=== PATIENT | male | born 1975 | race Caucasian/White ===

== ENCOUNTER → 2020-07-19 | Outpatient (CLI) | payer OTHER ==
--- NOTE | 2020-07-19 11:16 | RAD ---
Study: XR FOOT_RIGHT 3 VIEWS Indication: Pain. Trauma to the foot in the region of the first and second metatarsals. Comparison: None. Findings: No acute fracture is identified throughout the foot. 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 Alignment is within normal limits. No advanced ar throsis. Os peroneum. Mild chronic spurring at the anterior tibial plafond. 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 Collectively no acute osse ous abnormality seen throughout the foot. Electronically signed by: LEE ANN BABCOCK MD (07/19/2020 11:13 AM) [id number]
== END ==
LOC: RAD 09:26
PROVIDERS: ATTEND Nurse Practitioner Family
DX: M77.8 Other enthesopathies, not elsewhere classified (principal); Q74.1 Congenital malformation of knee
CPT/HCPCS: 73630